=== PATIENT | male | born 2000 | race Caucasian/White ===

== ENCOUNTER 2024-07-08 12:38 | Emergency (ER) | payer OTHER ==
[~2024-07-08] VITALS: Ht 177.8 cm; Wt 65.8 kg
[2024-07-08 13:00] VITALS: BP 157/92; TEMP 98
[2024-07-08] MEDS ORDERED: TDAP [DIPH/PERTUSSIS/TET] 0.5 ML VIAL IM ONE (14:02)
[2024-07-08] MEDS: TDAP [DIPH/PERTUSSIS/TET] 0.5 ML VIAL IM ONE (14:09)
[2024-07-08] MEDS ORDERED: AMOX-430 PO (14:29)
[2024-07-08 14:43] VITALS: O2SAT 100
== END 2024-07-08 14:44 | disposition home or self-care (01) ==
LOC: ER 12:46
DX: S71.111A Laceration without foreign body, right thigh, initial encounter (principal); F17.200 Nicotine dependence, unspecified, uncomplicated; H91.90 Unspecified hearing loss, unspecified ear; Z87.39 Personal history of other diseases of the musculoskeletal system and connective tissue; Z87.2 Personal history of diseases of the skin and subcutaneous tissue; W54.0XXA Bitten by dog, initial encounter; Y93.89 Activity, other specified; Y92.89 Other specified places as the place of occurrence of the external cause; Y99.8 Other external cause status
CPT/HCPCS: 90715

== ENCOUNTER 2024-08-04 21:42 | Emergency (ER) | payer OTHER ==
[~2024-08-04] VITALS: Ht 182.9 cm; Wt 74.8 kg
[~2024-08-04 21:42] MED LIST: AMOX-430 PO
[2024-08-04] MEDS ORDERED: LIDOCAINE HCL/MPF 1% 30 ML VIAL IJ ONE (22:11)
[2024-08-04] MEDS ORDERED: CEPH-570 PO (23:09)
[2024-08-04 23:23] VITALS: BP 128/77; TEMP 98; O2SAT 99
== END 2024-08-05 00:12 | disposition home or self-care (01) ==
LOC: ER 21:43
DX: S71.112A Laceration without foreign body, left thigh, initial encounter (principal); F17.200 Nicotine dependence, unspecified, uncomplicated; Z87.39 Personal history of other diseases of the musculoskeletal system and connective tissue; Z86.69 Personal history of other diseases of the nervous system and sense organs; X58.XXXA Exposure to other specified factors, initial encounter; Y93.89 Activity, other specified; Y92.89 Other specified places as the place of occurrence of the external cause; Y99.8 Other external cause status
CPT/HCPCS: 12002; 99283; J3490

== ENCOUNTER 2025-03-16 22:02 | Emergency (ER) | payer OTHER, BC ==
[~2025-03-16] VITALS: Ht 182.9 cm; Wt 74.8 kg
[~2025-03-16 22:02] MED LIST changes: +CEPH-570 PO
[2025-03-16 22:54] VITALS: BP 124/81; TEMP 97.7; O2SAT 99
== END 2025-03-16 23:17 ==
LOC: ER 22:04
DX: Z02.89 Encounter for other administrative examinations (principal); F17.200 Nicotine dependence, unspecified, uncomplicated; Z59.00 Homelessness unspecified; Z87.39 Personal history of other diseases of the musculoskeletal system and connective tissue; Z87.2 Personal history of diseases of the skin and subcutaneous tissue